=== PATIENT | male | born 1960 ===

== ENCOUNTER 2019-11-21 15:06 | Inpatient (IN) | payer SELFPAY ==
[~2019-11-21] VITALS: Ht 177.8 cm; Wt 63.8 kg
[2019-11-21] MEDS ORDERED: PRILOSEC 20MG20 MG PO (15:35)
[2019-11-21 15:55] LABS: BASO # 0.1 (0.0-0.2); BASO % 1.2 % (0.0-2.0); EOS # 0.5 (0.0-0.7); EOS % 5.2 % (0-4.0); GRAN # 6.2 (1.4-6.5); GRAN % 68.7 % (42.2-75.2); HEMOGLOBIN 10.8 g/dl (13.5-18.0); LYMPH # 1.8 (1.2-3.4); LYMPH % 19.6 % (20.0-51.0); MEAN CELL VOLUME 77 fl (80.0-100.0); MEAN CORPUSCULAR HEMOGLOBIN 23 pg (27.0-31.0); MEAN CORPUSCULAR HGB CONC 30 g/dl (33.0-37.0); MEAN PLATELET VOLUME 9.8 fl (7.4-10.4); MONO # 0.4 (0.1-0.6); MONO % 4.9 % (1.7-9.3); PLATELET COUNT 307 K/mm3 (130-400); RED BLOOD COUNT 4.74 M/mm3 (4.20-5.60); REDCELL DISTRIBUTION WIDTH-CV 16.6 % (11.5-14.5)
[2019-11-21 15:57] LABS: HEMATOCRIT 36.6 % (42.0-52.0)
[2019-11-21 16:14] LABS: ALANINE AMINOTRANSFERASE 13 U/L (4-49); ALBUMIN 4.1 gm/dL (3.5-5.0); ALKALINE PHOSPHATASE 92 U/L (50-136); ANION GAP 8 mmol/L (7-16); AST,SGOT 25 U/L (15-37); BILIRUBIN,TOTAL 0.3 mg/dL (0.0-1.0); BLOOD UREA NITROGEN 27 mg/dL (9-20); CALCIUM 8.4 mg/dL (8.4-10.2); CARBON DIOXIDE 24 mmol/L (22-30); CHLORIDE 106 mmol/L (98-107); CREATININE, serum 0.71 (0.66-1.25); GLUCOSE 105 mg/dL (74-106); LIPASE 59 U/L (23-300); POTASSIUM 4.2 mmol/L (3.4-5.0); SODIUM 137 mmol/L (137-145); TOTAL PROTEIN 7.4 gm/dL (6.4-8.2)
[2019-11-21 16:15] LABS: C-REACTIVE PROTEIN < 0.5 mg/dL (0.0-0.9)
[2019-11-21 16:25] LABS: TROPONIN-I < 0.012 ng/mL (0.000-0.035)
[2019-11-21 18:31] VITALS: BP 108/74; PULSE 62; TEMP 98.4
[2019-11-21 19:53] VITALS: BP 114/58; PULSE 62; TEMP 98
[2019-11-21 23:45] VITALS: BP 113/56; PULSE 68; TEMP 98
[2019-11-22 04:17] VITALS: BP 92/71; PULSE 73; TEMP 98
[2019-11-22 05:52] LABS: BASO # 0.1 (0.0-0.2); BASO % 1.5 % (0.0-2.0); EOS # 0.7 (0.0-0.7); EOS % 9.9 % (0-4.0); GRAN # 3.8 (1.4-6.5); LYMPH # 2.1 (1.2-3.4); LYMPH % 29.3 % (20.0-51.0); MEAN CELL VOLUME 77 fl (80.0-100.0); MEAN CORPUSCULAR HGB CONC 29 g/dl (33.0-37.0); MEAN PLATELET VOLUME 9.5 fl (7.4-10.4); MONO # 0.5 (0.1-0.6); MONO % 7.2 % (1.7-9.3); PLATELET COUNT 256 K/mm3 (130-400); RED BLOOD COUNT 4.18 M/mm3 (4.20-5.60); REDCELL DISTRIBUTION WIDTH-CV 16.8 % (11.5-14.5)
[2019-11-22 05:54] LABS: HEMATOCRIT 32.1 % (42.0-52.0); HEMOGLOBIN 9.4 g/dl (13.5-18.0); MEAN CORPUSCULAR HEMOGLOBIN 22 pg (27.0-31.0)
[2019-11-22 06:01] LABS: ANION GAP 6 mmol/L (7-16); BLOOD UREA NITROGEN 24 mg/dL (9-20); CALCIUM 7.9 mg/dL (8.4-10.2); CARBON DIOXIDE 24 mmol/L (22-30); CHLORIDE 106 mmol/L (98-107); CHOLESTEROL 151 mg/dL (120-200); CHOLESTEROL RISK RATIO 2.9; CREATININE, serum 0.73 (0.66-1.25); GLUCOSE 104 mg/dL (74-106); HDL CHOLESTEROL 52 mg/dL; LDL CHOLESTEROL 86 mg/dL; POTASSIUM 4.2 mmol/L (3.4-5.0); SODIUM 137 mmol/L (137-145); TRIGLYCERIDE 64 mg/dL
[2019-11-22 06:16] LABS: TROPONIN-I < 0.012 ng/mL (0.000-0.035)
[2019-11-22 08:11] VITALS: BP 116/65; PULSE 69; TEMP 98
[2019-11-22 11:13] VITALS: BP 109/81; PULSE 68; TEMP 97.9
[2019-11-22 11:24] LABS: PARTIAL THROMBOPLASTIN TIME 30.9 SECONDS (26.0-37.0)
[2019-11-22 15:31] VITALS: BP 107/49; PULSE 69; TEMP 97.8
[2019-11-22 19:42] VITALS: BP 104/44; PULSE 70; TEMP 98.1
[2019-11-22 23:29] VITALS: BP 120/51; PULSE 76; TEMP 97.9
[2019-11-23 03:59] VITALS: BP 117/50; PULSE 68; TEMP 98.1
[2019-11-23 07:44] VITALS: BP 100/57; PULSE 72; TEMP 98.4
[2019-11-23 12:12] VITALS: BP 115/62; PULSE 64; TEMP 97.7
[2019-11-23 15:48] VITALS: BP 119/70; PULSE 78; TEMP 97.8
[2019-11-23 20:38] VITALS: BP 100/45; PULSE 71; TEMP 98.1
[2019-11-23 23:44] VITALS: BP 128/50; PULSE 82; TEMP 98.2
[2019-11-24 03:37] VITALS: BP 111/40; PULSE 78; TEMP 98.6
[2019-11-24 06:53] LABS: BASO # 0.1 (0.0-0.2); BASO % 1.1 % (0.0-2.0); EOS # 0.7 (0.0-0.7); EOS % 9.2 % (0-4.0); GRAN # 5.2 (1.4-6.5); GRAN % 65.3 % (42.2-75.2); LYMPH # 1.4 (1.2-3.4); LYMPH % 17.8 % (20.0-51.0); MEAN CELL VOLUME 78 fl (80.0-100.0); MEAN CORPUSCULAR HGB CONC 29 g/dl (33.0-37.0); MEAN PLATELET VOLUME 9.9 fl (7.4-10.4); MONO # 0.5 (0.1-0.6); MONO % 6.3 % (1.7-9.3); PLATELET COUNT 270 K/mm3 (130-400); RED BLOOD COUNT 4.22 M/mm3 (4.20-5.60); REDCELL DISTRIBUTION WIDTH-CV 16.7 % (11.5-14.5)
[2019-11-24 06:58] LABS: HEMATOCRIT 32.7 % (42.0-52.0); HEMOGLOBIN 9.4 g/dl (13.5-18.0); MEAN CORPUSCULAR HEMOGLOBIN 22 pg (27.0-31.0)
[2019-11-24 07:07] LABS: CALCIUM 8.4 mg/dL (8.4-10.2); CREATININE, serum 0.66 (0.66-1.25); POTASSIUM 4.3 mmol/L (3.4-5.0)
[2019-11-24 07:15] VITALS: BP 122/59; PULSE 62; TEMP 97.9
== END 2019-11-24 10:25 | disposition left against medical advice (07) | DRG 311 ==
LOC: COL.ER 15:06 → SURG 16:58
PROVIDERS: Emergency Medicine; Internal Medicine Adult Congenital Heart Disease; Student in an Organized Health Care Education/Training Program; ADMIT Hospitalist
DX: I20.0 Unstable angina (principal); D50.9 Iron deficiency anemia, unspecified; Z87.11 Personal history of peptic ulcer disease; Z87.891 Personal history of nicotine dependence; Z79.82 Long term (current) use of aspirin; Z53.21 Procedure and treatment not carried out due to patient leaving prior to being seen by health care provider
CPT/HCPCS: 99232-AI; 99233-AI; 99239; G0378; J1644; J1650; J2270